=== PATIENT | male | born 1955 | race Caucasian/White ===

== ENCOUNTER 2017-02-12 10:56 | Emergency (ER) | payer BC ==
[~2017-02-12] VITALS: Ht 182.9 cm; Wt 89.0 kg
[~2017-02-12 10:56] MED LIST: MULT-806 PO; [UNRECOGNIZED DRUG - CODE] PO
[2017-02-12 11:01] VITALS: TEMP 97.8; Ht 182.9 cm; Wt 89.0 kg
--- OUTSIDE RECORDS SUMMARY | 2017-02-12 11:02 | XMS REPORT | Continuity of Care Document ---
Author Author [facility] Organization [facility] Address Unknown Phone Unavailable Allergies Active Description Code Type Severity Reaction Onset Reported/Identified Relationship to Patient Clinical Status Yes iodine NKMA N/A N/A 01/29/2014 Medications Problems Procedures Results Encounters ACCT No. Visit Date/Time Discharge Status Pt. Type Provider Facility Loc./Unit Complaint [id number] 11/14/2013 09:37:00 11/14/2013 23 :59:59 CLS Outpatient [id number] 10/27/2013 08:54:00 10/27/2013 23 :59:59 CLS Outpatient [id number] 07/23/2013 15:01:00 07/23/2013 23 :59:59 CLS Outpatient
--- OUTSIDE RECORDS SUMMARY | 2017-02-12 11:02 | XMS REPORT | Continuity of Care Document ---
Author Author Tracey Turner RN [facility] Ambulatory Address [address] [place] [address] Phone Unavailable Care Team Providers Care Footwear Sales Coordinator Name Role Phone Polo Haynes PP Unavailable Payers Payer name Insurance type Covered libertarian ID Authorization(s) Unknown Problems Condition Effective Dates (start - stop) Clinical Status Conjunctivitis, unspecified - *Acute Influenza Vaccine - NEED FOR PROPHYLACTIC VACCINATION WITH COMBINED [id number] ( DTP) (DTAP) VACCINE - Varicose Veins, Lower Extremity - *Chronic Varicose Veins, Lower Extremity - Chronic Varicose Veins, Lower Extremity - *Chronic History of head injury - *Chronic Irritability and anger - *Uncontrolled Dysfunction of eustachian tube - *Symptomatic Phlebitis and thrombophlebitis of superficial vessels of lower extremities Nov - *Acute Varicose Veins, Lower Extremity - *Acute Cellulitis and abscess of leg, except foot - *Acute Phlebitis and thrombophlebitis of superficial vessels of lower extremities Nov - *Acute EMBL SUPRFCL VES LOW EXT - *Acute Varicose Veins, Lower Extremity - *Chronic Embl suprfcl ves low ext - *Acute Varicose Veins, Lower Extremity - *Chronic Encounter for long-term (current) use of anticoagu - *Routine Anticoagulation management encounter - *Routine Thrombophlebitis leg superficial - *Acute Routine Medical Exam - *Routine Phlebitis and thrombophlebitis of superficial vessels of lower extremities Mar - Improved Varicose Veins, Lower Extremity - *Chronic Other and unspecified hyperlipidemia - *Chronic Family hx of prostate cancer - *Routine Varicose Veins, Lower Extremity - Chronic Family History Family Member Diagnosis Age At Onset Status Father (Unknown) Cancer - stomach Yes Father (Unknown) Cancer - prostate Yes Social History Social History Element Description Quantity Unknown Allergies, Adverse Reactions, Alerts Substance Reaction Severity Status IODINE Unknown Medications Medication Instructions Dosage Effective Dates (start - stop) Status Polymyxin B Sul 10,000 unit/mL-Trimethoprim 0.1 % eye drops instill 1 drop by ophthalmic route every 8 hours both eyes 0 - No Longer Active Vitamin C 500 mg capsule,extended release 3 tabs q d - Active Multiple Vitamins Daily tablet take 1 Tablet by Oral route every other day - Active Aspir-81 81 mg tablet,delayed release take 1 tablet (81MG) by oral route every day 81 MG - Active sertraline 50 mg tablet take 1 tablet (50MG) by oral route every day 50 MG - Active Flonase 50 mcg/actuation nasal spray,suspension inhale 1 spray (50MCG) by intranasal route 2 times every day in each nostril 50 MCG - Active prednisone 20 mg tablet take 2 tablet (40MG) by oral route every day 40 MG - Active Immunizations Vaccine Date Status Comments Flu (split) (3 yrs or older) completed Tdap (Boostrix r) completed Td (adult) completed - Completed reason: previously given Results Test Name Date and Time Measure Units Reference Range Abnormal Flag Comments Unknown Vital Signs Date / Time: Height Weight Pulse Rate Blood Pressure Temperature /08:57:00 71.25 in 196.80 lbs 88 /min 112/80 mm[Hg] 97.6 F Procedures Procedure Date Unknown Encounters Encounter Location Date Patient Visit [facility] Patient [facility] Patient [facility] Patient Visit [facility] Patient [facility] Patient [facility] Patient Visit [facility] Patient Visit [facility] Patient Visit [facility] Advance Directives Directive Effective Date Unknown
--- OUTSIDE RECORDS SUMMARY | 2017-02-12 11:02 | XMS REPORT | Referral Summary ---
Author Author [facility] Organization [facility] Address Unknown Phone Unavailable Care Team Providers Care Asset Card Clerk Name Role Phone Dontae Rose Primary Care Physician [phone] Encounter VC Date(s): 12/31/15 - 12/31/15 [facility] Family [address] [place] [address] Discharge Diagnosis: Depression Discharge Diagnosis: Bursitis, olecranon Discharge Diagnosis: Snoring Discharge Disposition: 01-Home or Self Care Attending Physician: Ariana Rose DO Admitting Physician: Ariana Rose DO Vital Signs Most recent to 1 oldest [Reference Range]: Temperature Tympanic 36.9 degC [36.6-38.1 degC] (12/31/15 7:51 AM) Peripheral Pulse 91 bpm Rate [60-100 bpm] (12/31/15 7:51 AM) Respiratory Rate 17 br/min [14-20 br/min] (12/31/15 7:51 AM) Blood Pressure 130/74 mmHg [90-140/60-90 mmHg] (12/31/15 7:51 AM) SpO2 95 % (12/31/15 7:51 AM) Problem List Condition Effective Dates Status Health Status Informant Depression(Confirmed Active ) Head injury w/ coma 1973 Resolved [id number], rt eye visionless(Confirmed ) Hyperlipidemia(Confi Resolved rmed) phlebititis Resolved w/superficial extensive thrombus(Confirmed) Varicose Resolved veins(Confirmed)1 1Severe left leg Allergies, Adverse Reactions, Alerts Substance Reaction Severity Status iodine Active Medications Aspir 81 mg, Oral, Daily, 0 Refill(s) Start Date: 03/25/14 Status: Ordered calcium citrate Oral, BID, 0 Refill(s) Start Date: 11/29/15 Status: Ordered multivitamin Daily, 0 Refill(s) Start Date: 03/25/14 Status: Ordered sertraline 50 mg oral tablet See Instructions, TAKE ONE TABLET BY MOUTH ONCE DAILY, # 90 Each, 0 Refill(s), Pharmacy: [id number], TAKE ONE TABLET BY MOUTH ONCE DAILY Start Date: 10/04/15 Status: Ordered Vitamin B Complex 100 1 tabs, Oral, Daily, 0 Refill(s) Start Date: 11/29/15 Status: Ordered Vitamin C 0 Refill(s) Start Date: 03/25/14 Status: Ordered Results No data available for this section Immunizations Vaccine Date Refusal Reason tetanus/diphth/pertuss (Tdap) adult/adol 07/11/13 influenza virus vaccine, inactivated 09/29/15 influenza virus vaccine, live 07/11/13 tetanus-diphth toxoids (Td) adult/adol 09/16/04 Procedures Procedure Date Related Diagnosis Body Site Arthrocentesis, aspiration and/or injection, 12/31/15 intermediate joint or bursa (eg, temporomandibular, acromioclavicular, wrist, elbow or ankle, olecranon bursa); without ultrasound guidance Colonoscopy1 08/20/08 Vasectomy 2005 1normal, repeat in 10 years Social History Social History Type Response Smoking Status Never smoker Assessment and Plan Extracted from: Title: Office Visit Note Author: Ariana Rose DO Date: 12/31/15 Assessment/Plan Bursitis, olecranon Procedure: The risks, benefits and alternatives of drainage of the olecranon bursa were discussed and verbal consent was obtained. The area was cleansed with alcoholand approximately5 mL of serosanguineous fluidwas removed from the olecranon bursaand then 40 mgof Kenalogwas inserted. Patient tolerated the procedure well. Wound care instructions were given. No complications. Ordered: Arthro/Asp Intermediate Joint Inj (Wrist, Elbow, Ankle) Office Visit Level 4 Est 63157 Depression Continue sertraline. Ordered: Office Visit Level 4 Est 66823 Snoring Continue as per sleep medicine. Keep me posted on any diagnostic results. Ordered: Office Visit Level 4 Est 92431 Orders: Basic Metabolic Panel Lipid Panel
--- OUTSIDE RECORDS SUMMARY | 2017-02-12 11:02 | XMS REPORT | Referral Summary ---
Author Author [facility] Organization [facility] Address Unknown Phone Unavailable Care Team Providers Care Managed Care Nurse Name Role Phone Dontea Rose Primary Care Physician [phone] Encounter VC Date(s): 11/29/15 - 11/29/15 [facility], Family [address] [place] [address]- Discharge Diagnosis: Umbilical hernia Discharge Diagnosis: Abdominal muscle pain Discharge Disposition: 01-Home or Self Care Attending Physician: Vianney Downing APRN Admitting Physician: Vianney Downing APRN Vital Signs Most recent to 1 oldest [Reference Range]: Temperature Tympanic 36.1 degC [36.6-38.1 degC] *LOW* (11/29/15 9:00 AM) Peripheral Pulse 72 bpm Rate [60-100 bpm] (11/29/15 9:00 AM) Blood Pressure 122/82 mmHg [90-140/60-90 mmHg] (11/29/15 9:00 AM) Problem List Condition Effective Dates Status Health Status Informant Head injury w/ coma 1973 Resolved [id number], rt eye visionless(Confirmed ) Hyperlipidemia(Confi Resolved rmed) [...] DAILY, # 90 Each, 0 Refill(s), Pharmacy: [id number], TAKE ONE TABLET BY MOUTH ONCE DAILY [...] Procedures Procedure Date Related Diagnosis Body Site Colonoscopy1 08/20/08 Vasectomy 2005 1normal, repeat in 10 years Social History Social History Type Response Smoking Status Never smoker Assessment and Plan Extracted from: Title: Office Visit Note-abd pain, Author: Vianney Downing APRN Date: muscular Assessment/Plan 1.Abdominal muscle pain Discussed with patient related to patient that his abdominal pain is more muscular in nature. We discussed changing of his exercise routine. Avoidrepetitive exercises. If the pain becomes more severeor has any GI or symptomatology is with it to let us know. Ordered: Office Visit Level 3 Est 98942 2.Umbilical hernia Reviewed with the patient. Develops any increased size as umbilical hernia orpain/tendernessthat he would need intervention for that. Ordered: Office Visit Level 3 Est 46854
--- OUTSIDE RECORDS SUMMARY | 2017-02-12 11:03 | XMS REPORT | Continuity of Care Document ---
Author Author [facility] Amb[facility] Address [address] [place] [address] [place] [facility] [place] [address] Phone Care Team Providers Care Urban Designer Name Role Phone Polo Haynes PP Unavailable Payers Payer name Insurance type Covered alliance party ID Authorization(s) Unknown Problems Condition Effective Dates (start - stop) Clinical Status Irritability and anger - *Uncontrolled History of head injury - *Chronic Varicose Veins, Lower Extremity - *Chronic Varicose Veins, Lower Extremity - Chronic Influenza Vaccine - NEED FOR PROPHYLACTIC VACCINATION WITH COMBINED [id number] ( DTP) (DTAP) VACCINE - Varicose Veins, Lower Extremity - *Chronic Phlebitis and thrombophlebitis of superficial vessels of lower extremities Nov - *Acute Varicose Veins, Lower Extremity - *Acute Cellulitis and abscess of leg, except foot - *Acute Varicose Veins, Lower Extremity - Chronic Varicose Veins, Lower Extremity - *Chronic Phlebitis and thrombophlebitis of superficial vessels of lower extremities Nov - *Acute EMBL SUPRFCL VES LOW EXT - *Acute Embl suprfcl ves low ext - *Acute Thrombophlebitis leg superficial - *Acute Anticoagulation management encounter - *Routine Encounter for long-term (current) use of anticoagu - *Routine Varicose Veins, Lower Extremity - *Chronic Routine Medical Exam - *Routine Phlebitis and thrombophlebitis of superficial vessels of lower extremities Mar - Improved Varicose Veins, Lower Extremity - *Chronic Other and unspecified hyperlipidemia - *Chronic Family hx of prostate cancer - *Routine Family History Family Member Diagnosis Age At Onset Status Father (Unknown) Cancer - stomach Yes Father (Unknown) Cancer - prostate Yes Social History Social History Element Description Quantity Unknown Allergies, Adverse Reactions, Alerts Substance Reaction Severity Status IODINE Unknown Medications Medication Instructions Dosage Effective Dates (start - stop) Status Aspir-81 81 mg tablet,delayed release take 1 tablet (81MG) by oral route every day 81 MG - Active sertraline 50 mg tablet take 1 tablet (50MG) by oral route every day 50 MG - Active Vitamin C 500 mg capsule,extended release 3 tabs q d - Active Multiple Vitamins Daily tablet take 1 Tablet by Oral route every other day - Active Immunizations Vaccine Date Status Comments Flu (split) (3 yrs or older) completed Tdap (Boostrix r) completed Td (adult) completed - Completed reason: previously given Results Test Name Date and Time Measure Units Reference Range Abnormal Flag Comments Unknown Vital Signs Date / Time: Height Weight Pulse Rate Blood Pressure Temperature /15:10:00 71.25 in 189.50 lbs 76 /min 102/78 mm[Hg] 97.7 F Procedures Procedure Date Unknown Encounters Encounter Location Date Patient Visit [facility] Patient Visit [facility] Patient Visit [facility] Patient Visit [facility] Patient Visit [facility] Patient Visit [facility] Patient Visit [facility] Advance Directives Directive Effective Date Unknown
--- OUTSIDE RECORDS SUMMARY | 2017-02-12 11:03 | XMS REPORT | Referral Summary ---
Author Author [facility] Organization [facility] Address Unknown Phone Unavailable Care Team Providers Care Med Dir Name Role Phone Dontae Rose Primary Care Physician [phone] Encounter VC Date(s): 09/29/15 - 09/29/15 [facility] [address] [place] [address] Discharge Diagnosis: Well adult Discharge Diagnosis: Tinnitus Discharge Diagnosis: Hyperlipidemia Discharge Diagnosis: Anger Discharge Disposition: 01-Home or Self Care Attending Physician: Vianney Downing APRN Admitting Physician: Vianney Downing APRN Vital Signs Most recent to 1 oldest [Reference Range]: Temperature Tympanic 36.1 degC [36.6-38.1 degC] *LOW* (09/29/15 10:27 AM) Peripheral Pulse 64 bpm Rate [60-100 bpm] (09/29/15 10:27 AM) Blood Pressure 130/76 mmHg [90-140/60-90 mmHg] (09/29/15 10:27 AM) Problem List Condition Effective Dates Status Health Status Informant Head injury w/ coma 1973 Resolved [id number], rt eye visionless(Confirmed ) Hyperlipidemia(Confi Resolved rmed) phlebititis Resolved w/superficial extensive thrombus(Confirmed) Varicose Resolved veins(Confirmed)1 1Severe left leg Allergies, Adverse Reactions, Alerts Substance Reaction Severity Status iodine Active Medications Aspir 81 mg, Oral, Daily, 0 Refill(s) Start Date: 03/25/14 Status: Ordered multivitamin Daily, 0 Refill(s) Start Date: 03/25/14 Status: Ordered sertraline 50 mg oral tablet See Instructions, TAKE ONE TABLET BY MOUTH ONCE DAILY, # 90 Each, 11 Refill(s), Pharmacy: [id number], TAKE ONE TABLET BY MOUTH ONCE DAILY Start Date: 09/29/15 Status: Ordered Vitamin C 0 Refill(s) Start [...] and Plan Extracted from: Title: Office Visit Note-[facility] Author: Vianney Downing HAND SHAPER Date: Assessment/Plan 1.Well adult Counseled on general health maintenance and disease prevention. Reviewedhealthy food choices and encourage daily exercise. Counseled on flu vaccine. Given by nursing. Due to family history of prostate cancer will check PSA. Patient would like to change PCPs to Dr. Rose. Encouraged him to make an appointment to establish care. Ordered: Periodic Comp Preventive Med 40 to 64 years Est 05610 Prostate Specific Antigen 2.Tinnitus Offered audiology appointment. He will consider. Ordered: Periodic Comp Preventive Med 40 to 64 years Est 16729 Anger Continue Zoloft. Ordered: Periodic Comp Preventive Med 40 to 64 years Est 29223 Hyperlipidemia Fasting lipids and chemistry today. Ordered: Comprehensive Metabolic Panel Lipid Panel Periodic Comp Preventive Med 40 to 64 years Est 67688 Need for influenza vaccination Orders: sertraline, See Instructions, TAKE ONE TABLET BY MOUTH ONCE DAILY, # 90 Each, 11 Refill(s), Pharmacy: [id number], TAKE ONE TABLET BY MOUTH ONCE DAILY
--- OUTSIDE RECORDS SUMMARY | 2017-02-12 11:03 | XMS REPORT | Referral Summary ---
Author Author [facility] Organization [facility] Address Unknown Phone Unavailable Care Team Providers Care Sales Developer Name Role Phone Dontae Rose Primary Care Physician [phone] Encounter VC Date(s): 10/25/16 - 10/25/16 [facility], Family [address] [place] [address] Discharge Diagnosis: Cellulitis and abscess of hand Discharge Disposition: 01-Home or Self Care Attending Physician: Ariana Rose DO Admitting Physician: Ariana Rose DO Vital Signs Most recent to 1 oldest [Reference Range]: Temperature Tympanic 35.8 degC [36.6-38.1 degC] *LOW* (10/25/16 9:31 AM) Peripheral Pulse 66 bpm Rate [60-100 bpm] (10/25/16 9:31 AM) Blood Pressure 126/86 mmHg [90-140/60-90 mmHg] (10/25/16 9:31 AM) SpO2 98 % (10/25/16 9:31 AM) Problem List Condition Effective Dates Status Health Status Informant Depression(Confirmed Active ) Head injury w/ coma 1973 Resolved [id number], rt eye visionless(Confirmed ) Hyperlipidemia(Confi Resolved rmed) phlebititis Resolved w/superficial extensive thrombus(Confirmed) Varicose Resolved veins(Confirmed)1 1Severe left leg Allergies, Adverse Reactions, Alerts Substance Reaction Severity Status iodine Active Medications Aspir 81 mg, Oral, Daily, 0 Refill(s) Start Date: 03/25/14 Status: Ordered calcium citrate Oral, BID, 0 Refill(s) Start Date: 11/29/15 Status: Ordered Keflex 500 mg oral capsule 500 mg 1 caps, Oral, q8hr, X 7 days, # 21 caps, 0 Refill(s), Pharmacy: [id number], 1 caps Oral q8hr,x7 days Start Date: 10/25/16 Stop Date: 11/01/16 Status: Ordered multivitamin Daily, 0 Refill(s) Start Date: 03/25/14 Status: Ordered Ocuvite tabs, Oral, Daily, 0 Refill(s) Start Date: 10/25/16 Status: Ordered sertraline 50 mg oral tablet See Instructions, TAKE ONE TABLET BY MOUTH ONCE DAILY, # 90 tabs, eRx: [id number], TAKE ONE TABLET BY MOUTH ONCE DAILY Start Date: 08/18/16 Status: Ordered Vitamin B Complex 100 1 tabs, Oral, Daily, 0 Refill(s) Start Date: 11/29/15 Status: Ordered Vitamin C 0 Refill(s) Start Date: 03/25/14 Status: Ordered Results No data available for this section Immunizations Given and Recorded Vaccine Date Status Refusal Reason tetanus/diphth/pertuss (Tdap) adult/adol 07/11/13 Recorded influenza virus vaccine, inactivated 09/29/15 Given influenza virus vaccine, live 07/11/13 Given tetanus-diphth toxoids (Td) adult/adol 09/16/04 Given Procedures Procedure Date Related Diagnosis Body Site Incision and drainage of abscess (eg, 10/25/16 carbuncle, suppurative hidradenitis, cutaneous or subcutaneous abscess, cyst, furuncle, or paronychia); simple or single Colonoscopy1 08/20/08 Vasectomy 2005 1normal, repeat in 10 years Social History Social History Type Response Smoking Status Never smoker Assessment and Plan Extracted from: Title: ACUTE abscess and cellulits Author: Ariana Rose DO Date: 10/25/16 Assessment/Plan Cellulitis and abscess of hand The risks, benefits, alternatives of I&D were discussed and consent was obtained. The lesion was cleansed with ChloraPrep 3 and then anesthetized with 1 mL of lidocaine without epinephrine. A 15 bladescalpel was used to form a cross incisionover the area. Purulent discharge was noted. The lesion was rinsed with 20 mL of normal saline. Hemostasis was achieved with electrocautery. Wound care was discussed. Patient tolerated procedure well. Work note was providedas patient cannotsubmerse his hand or get it wet in any way for at least a week. He'll return to clinic in 1 week for reevaluation. Patient was prescribedKeflex. Ordered: Drain Skin Abscess, Simple/Single 58078 Office Visit Level 3 Est 52912
--- OUTSIDE RECORDS SUMMARY | 2017-02-12 11:03 | XMS REPORT | Continuity of Care Document ---
Author Author [facility] Ambulatory Address [address] [place] [address] [facility] [place] [address] Phone Care Team Providers Care Forestry Fire Aid Name Role Phone Polo Haynes PP Unavailable Payers Payer name Insurance type Covered constitution party ID Authorization(s) Unknown Problems Condition Effective Dates (start - stop) Clinical Status Dysfunction of eustachian tube - *Symptomatic Influenza Vaccine - NEED FOR PROPHYLACTIC VACCINATION WITH COMBINED [id number] ( DTP) (DTAP) VACCINE - Varicose Veins, Lower Extremity - *Chronic Irritability and anger - *Uncontrolled History of head injury - *Chronic Varicose Veins, Lower Extremity - *Chronic Varicose Veins, Lower Extremity - Chronic Phlebitis and thrombophlebitis of superficial vessels of [...] Family hx of prostate cancer - *Routine Conjunctivitis, unspecified - *Acute Family History Family Member Diagnosis Age At Onset Status Father (Unknown) Cancer - stomach Yes Father (Unknown) Cancer - prostate Yes Social History Social History Element Description Quantity Unknown Allergies, Adverse Reactions, Alerts Substance Reaction Severity Status IODINE Unknown Medications Medication Instructions Dosage Effective Dates (start - stop) Status prednisone 20 mg tablet take 2 tablet (40MG) by oral route every day 40 MG - Active Flonase 50 mcg/actuation nasal spray,suspension inhale 1 spray (50MCG) by intranasal route 2 times every day in each nostril 50 MCG - Active Vitamin C 500 mg capsule,extended [...] route every day 50 MG - Active Immunizations Vaccine Date Status Comments Flu (split) (3 yrs or older) completed Tdap (Boostrix r) completed Td (adult) completed - Completed reason: previously given Results Test Name Date and Time Measure Units Reference Range Abnormal Flag Comments Unknown Vital Signs Date / Time: Height Weight Pulse Rate Blood Pressure Temperature /09:40:00 71.25 in 195.12 lbs 84 /min 112/66 mm[Hg] 97.1 F Procedures Procedure Date Unknown Encounters Encounter Location Date Patient Visit [facility] Patient Visit [facility] Patient Visit [facility] Patient Visit [facility] Patient Visit [facility] Patient Visit [facility] Patient Visit [facility] Patient Visit [facility] Patient Visit [facility] Advance Directives Directive Effective Date Unknown
--- OUTSIDE RECORDS SUMMARY | 2017-02-12 11:03 | XMS REPORT | Referral Summary ---
Author Author [facility] Organization [facility] Address Unknown Phone Unavailable Care Team Providers Care Airframe And Powerplant Mechanic Name Role Phone Dontae Rose Primary Care Physician [phone] Encounter VC Date(s): 11/08/16 - 11/08/16 [facility], Family [address] [place] [address]- Discharge Diagnosis: Open wound of finger Discharge Disposition: 01-Home or Self Care Attending Physician: Ariana Rose DO Admitting Physician: Ariana Rose DO Vital Signs Most recent to 1 oldest [Reference Range]: Blood Pressure 164/80 mmHg [90-140/60-90 mmHg] *HI* (11/08/16 3:26 PM) Problem List Condition Effective Dates Status Health Status Informant Depression(Confirmed Active ) Head injury w/ coma 1973 Resolved [id number], rt eye visionless(Confirmed ) Hyperlipidemia(Confi Resolved rmed) phlebititis Resolved w/superficial extensive thrombus(Confirmed) Varicose Resolved veins(Confirmed)1 1Severe left leg Allergies, Adverse Reactions, Alerts Substance Reaction Severity Status iodine Active Medications Aspir 81 mg, Oral, Daily, 0 Refill(s) Start Date: 03/25/14 Status: Ordered calcium citrate Oral, Daily, 0 Refill(s) Start Date: 11/29/15 Status: Ordered multivitamin Daily, 0 Refill(s) Start Date: 03/25/14 Status: Ordered Ocuvite tabs, Oral, Daily, 0 Refill(s) Start Date: 10/25/16 Status: Ordered sertraline 50 mg oral tablet See Instructions, TAKE ONE TABLET BY MOUTH ONCE DAILY, # 90 tabs, eRx: [id number], TAKE ONE TABLET BY MOUTH ONCE DAILY Start Date: 08/18/16 Status: Ordered Vitamin C 0 Refill(s) Start [...] Visit Note Author: Ariana Rose DO Date: 11/08/16 Assessment/Plan Open wound of finger This is healing appropriately, given patient some flexibility exercises for his finger and he should use heat to help withimprovement of range of motion. Otherwise he should continue to monitor for signs and symptoms of infection. He should return to clinic if his range of motion doesn't improve in the next 4 weeks or soor if he has any concerns about the healing of his wound. Ordered: Office Visit Level 3 Est 24802
--- OUTSIDE RECORDS SUMMARY | 2017-02-12 11:03 | XMS REPORT | Referral Summary ---
Author Author [facility] Organization [facility] Address Unknown Phone Unavailable Care Team Providers Care Regulatory Specialist Name Role Phone Dontae Rose Primary Care Physician [phone] Encounter VC Date(s): 11/01/16 - 11/01/16 [facility] [address] [place] [address]- Discharge Diagnosis: Nonhealing surgical wound Discharge Diagnosis: Cellulitis Discharge Disposition: 01-Home or Self Care Attending Physician: Ariana Rose DO Admitting Physician: Ariana Rose DO Vital Signs Most recent to 1 oldest [Reference Range]: Temperature Tympanic 36.9 degC [36.6-38.1 degC] (11/01/16 3:48 PM) Peripheral Pulse 77 bpm Rate [60-100 bpm] (11/01/16 3:48 PM) Respiratory Rate 16 br/min [14-20 br/min] (11/01/16 3:48 PM) Blood Pressure 130/80 mmHg [90-140/60-90 mmHg] (11/01/16 3:48 PM) SpO2 98 % (11/01/16 3:48 PM) Problem List Condition Effective Dates Status Health Status Informant Depression(Confirmed Active ) Head injury w/ coma 1973 Resolved [id number], rt eye visionless(Confirmed ) Hyperlipidemia(Confi Resolved rmed) [...] MOUTH ONCE DAILY, # 90 tabs, eRx: [id number], TAKE ONE TABLET BY MOUTH [...] Visit Note Author: Ariana Rose DO Date: 11/01/16 Assessment/Plan Cellulitis Ordered: Office Visit Level 3 Est 97926 Nonhealing surgical wound Ordered: Office Visit Level 3 Est 62481 The area wascleansed anddebrided with contact applicator. It was then packed with some Xeroform dressingand a Band-Aid. Patient was instructed to finish his antibiotics and continuekeeping the lesiondry. He is to do daily dressing changes with Xeroformand return to clinic in 1 week.
--- NOTE | 2017-02-12 11:07 | ERPDOC ---
Departure Disposition Decision Date: February 12, 2017 Disposition Decision Time: 12:06 Disposition: 01 DISCHARGED HOME, SELF-CARE Impression Impression Impression: Primary Impression: Varicose veins of both lower extremities Ruled Out: Suspected DVT (deep vein thrombosis) Severity: Moderate Condition: Stable Seen By: Physician only Referrals: TATUM SENA DO Follow-up for reevaluation Patient Instructions: Varicose Veins (ED) Problems/Meds/Labs Reviewed?: Yes Medications reviewed and manag: Yes Follow up care ordered?: Yes Mental Status: Alert, Oriented HPI - Lower Extremity General Stated Complaint: ISSUES WITH VARICOSE VEINS Time Seen by Provider: 11:07 Source: patient Exam Limitations: no limitations HPI - Lower Extremity Initial Comments Patient is a 61-year-old male does have a history of severe chronic varicose vein issues. Patient 2013 had some superficial thrombophlebitis that was close to the saphenous vein so at that time patient was started on Xarelto for 3 weeks , it is unclear if he followed up or if they decided not to treat him with patient is currently not taking it. Patient presents the ER with increased swelling and tortuosity of the veins in his leg. Patient's having no pain no redness, called his primary care physician 's office recommend come to the ER for evaluation. Occurred At: home Pain/Severity Scale: Now & Worst: 0/10 Pain/Injury Location: left leg Allergies: Coded Allergies: Iodinated Contrast Media - Oral and (Verified Allergy, Severe, RESPIRATORY DIFFICULTY, 02/12/17) Past History Past Medical History ENMT: other Neurological: other (TBI) Surgical History General: appendix, tonsils Family History Family PMH: FOUND: cancer Vaccines Hx Influenza Vaccination: Yes (2007) Hx Pneumococcal Vaccination: Yes (LONG TIME AGO) Hx Tetanus, Diptheria, Pertuss: Yes Social History Smoking Status: Never smoker Substance Use Type: does not use Alcohol Intake: none Review of Systems Constitutional Constitutional: DENIES: appetite decrease, chills, dizziness, fever, weakness Eyes Vision: DENIES: double vision, loss of visual contreras ENMT Sinuses: DENIES: congestion, rhinorrhea Cardiovascular Cardiac: DENIES: chest pain, dyspnea on exertion Pulmonary Respiratory: DENIES: cough, dyspnea, sputum, tachypnea GI Upper Abdomen: DENIES: dysphagia, nausea, pain, vomiting Lower Abdomen: DENIES: constipation, diarrhea, pain General: DENIES: frequency, urgency Musculoskeletal General: see HPI Integumentary Skin: see HPI, DENIES: color change, itching, rash Hematologic/Lymphatic Hematologic/Lymphatic: DENIES: anemia Physical Exam General General Nourishment: well nourished, well developed General Body Habitus: well groomed Vitals and Pain First Documented Vital Signs Date Time Temp Pulse Resp B/P Pulse Ox O2 Delivery O2 Flow Rate FiO2 02/12/17 11:01 97.8 92 16 129/93 95 Room Air Weight: Kilograms: Height (feet): Height (inches): Triage Pain Scale: RN VS reviewed by Provider: Yes Eyes (brief) Eyes Brief: found: EOMI ENMT (brief) ENMT Brief: FOUND: mucosa moist, normal dentition, NOT FOUND: nasal erythema, pharnyx erythema, tonsillar deviation Neck (brief) Neck: NOT FOUND: adenopathy, spasm, tenderness Respiratory (brief) Respiratory: FOUND: clear all contreras, equal bilaterally Abdomen (brief) Abdominal Brief: FOUND: soft Lymphatic (brief) Lymphatic Brief: NOT FOUND: adenopathy Musculoskeletal (brief) Musculoskeletal Brief: NOT FOUND: spasm, tenderness Integumentary (brief) Integumentary Brief: FOUND: dry, pink, warm Comments Patient does have significant varicose veins in the left lower extremity, with cord and tortuosity going up the greater saphenous vein in the medial thigh. No erythema nontender to palpation Neurologic (brief) Neurological Brief: FOUND: motor-no gross deficits, sensory-no gross deficits Psychiatric (brief) Psychiatric Brief: FOUND: alert, oriented Differential Diagnoses Considering: Cellulitis, DVT, Other (superficial thrombophlebitis, varicose veins) Progress Results/Orders Orders Procedure Category Date Status Time Us Venous Duplex, US 02/12/17 Taken Lower Ext Lt 11:09 THERESA ANGLIN MD February 12, 2017 11:07
--- NOTE | 2017-02-12 11:08 | NUR ---
PHYSICIAN VISIT DR. ANGLIN IN TO SEE PATIENT.
[2017-02-12] MEDS ORDERED: LUTE20CA12 (11:19)
[2017-02-12] MEDS ORDERED: SERT50TA PO (11:19)
--- NOTE | 2017-02-12 11:21 | NUR ---
ULTRASOUND ULTRASOUND AT BEDSIDE TO PERFORM VENOUS DOPPLER OF LEFT LOWER EXTREMITY.
--- NOTE | 2017-02-12 12:08 | DI ---
Indication: ITS.REASON: increased swelling and cord left lower extremity history of varic PROCEDURE: US VENOUS DUPLEX, LOWER EXT LT: Encounter: Initial Comparison: November 06, 2012 Technique: Color Doppler duplex and grayscale sonographic imaging of the left lower extremity was performed. Findings: There is no evidence for acute deep venous thrombosis in the left thigh. Specifically, serial graded compression was performed from the inguinal ligament to the popliteal bifurcation, on the left thigh, demonstrating appropriate compressibility of the deep venous system. In addition, color and pulsed Doppler demonstrate appropriate spontaneous flow, variation with respiration, and augmentation with calf compression. At the ankle, normal flow is identified in the posterior tibial veins; these vessels are also normal in caliber. Multiple varicose veins noted. Impression: No evidence of acute DVT in the left lower limb. .
[2017-02-12 12:20] VITALS: BP 124/80; PULSE 74; RESP 16; O2SAT 95
== END 2017-02-12 12:23 | disposition home or self-care (01) ==
LOC: ED 10:56
DX: I83.892 Varicose veins of left lower extremity with other complications (principal)